=== PATIENT | female | born 1945 | race Caucasian/White ===

== ENCOUNTER 2018-10-17 09:02 | Day surgery (SDC) | payer MEDICARE, OTHER ==
[~2018-10-17 09:02] MED LIST: Lactated Ringers 1,000 ML IV SCH; Midazolam 1 MG/ML 2 ML SDV ONE; Propofol 200 MG/20 ML SDV ONE; Sodium Chloride 0.9% 10 ML Syringe FLUSH PRN
[2018-10-17] MEDS ORDERED: Propofol 200 MG/20 ML SDV IV ONE (09:03)
[2018-10-17] MEDS ORDERED: Midazolam 1 MG/ML 2 ML SDV IV ONE (09:03)
--- NOTE | 2018-10-17 09:44 | PCM.PN ---
- General Info Date of Service: 10/17/18 - Review of Systems Systems Review Comment:: 73 y/o female with history of colon polyps here for Colonoscopy. Her last colonoscopy was 5 years ago. She denies any recent rectal bleeding or major change in her bowel pattern. She is medically stable to proceed. Her recent H and P is reviewed and there are no significant changes noted. She agrees to proceed today accepting risks. - Patient Data Vitals - Most Recent: Last Vital Signs Temp 97.4 F 10/17/18 09:00 Pulse 79 10/17/18 09:00 Resp 18 10/17/18 09:00 BP 133/84 10/17/18 09:00 Pulse Ox 99 10/17/18 09:00 Med Orders - Current: Current Medications Lactated Ringer's (Ringers, Lactated) 1,000 mls @ 30 mls/hr IV ASDIRECTED MUKUL Sodium Chloride (Saline Flush) 10 ml FLUSH Q8HR PRN PRN Reason: keep vein open - Problem List Review Problem List Initiated/Reviewed/Updated: Yes - My Orders Last 24 Hours: My Active Orders 10/16/18 10:15 Resuscitation Status Routine 10/17/18 09:00 Patient to Empty Bladder [RC] ASDIRECTED Peripheral IV Care [RC] . DIRECTED Verify Patient Consent Obtain [RC] ASDIRECTED Vital Signs [RC] PER UNIT ROUTINE Lactated Ringers [Ringers, Lactated] 1,000 ml IV ASDIRECTED Sodium Chloride 0.9% [Saline Flush] 10 ml FLUSH Q8HR PRN Peripheral IV Insertion Adult [OM.PC] Routine 10/17/18 Breakfast Nothing Per Oral Diet [DIET] - Assessment Assessment:: History of colon polyps - Plan Plan:: Colonoscopy
--- NOTE | 2018-10-17 10:25 | PCM.OPNOTE ---
- General Post-Op/Procedure Note Date of Surgery/Procedure: 10/17/18 Operative Procedure(s): Colonoscopy Findings: Moderate sized external hemorrhoids Pre Op Diagnosis: History of Colon Polyps Post-Op Diagnosis: Hemorrhoids Anesthesia Technique: MAC Primary Surgeon: Isma Stock Pathology: none Output, Urine Amount: 0 EBL in mLs: 0 Complications: None Condition: Good
--- NOTE | 2018-10-17 11:43 | OR ---
DATE OF SURGERY: 10/17/2018 SURGEON: Isma Stock MD PREOPERATIVE DIAGNOSIS: History of colon polyps. POSTOPERATIVE DIAGNOSIS: Hemorrhoids. OPERATION PERFORMED: Colonoscopy. INDICATIONS FOR SURGERY: This 73-year-old female has a known history of colon polyps, having had a large adenoma removed from the left side of her colon in the past. She comes today for surveillance colonoscopy. FINDINGS: No polyps were seen on today's exam. The colon mucosa appeared normal. The patient did have a moderate degree of external hemorrhoids, but these did not appear to be complicated. PROCEDURE: The patient was taken to the operating room. She was given intravenous sedation and with her in the left lateral decubitus position, digital rectal exam was performed showing no rectal masses. The Olympus colonoscope is inserted into the rectum and retroflexed examination of the rectal canal is performed. The scope was then carefully advanced under direct visualization through the entire length of the colon until the cecum is reached. Cecal acquisition is confirmed by noting the normal internal cecal anatomy including the appendiceal orifice and ileocecal valve. The light was also noted to transilluminate the abdominal wall in the right lower quadrant. After examining the cecum, the scope was slowly withdrawn, sequentially re-examining the colonic segments until the entire colon and rectum had been fully examined. The scope was removed and the patient was taken from the operating room in satisfactory condition. ESTIMATED BLOOD LOSS: Zero. COMPLICATIONS: None. PROGNOSIS: Good. /[id number]/MODL
== END 2018-10-17 11:56 | disposition home or self-care (01) ==
LOC: KA.SDS 09:02
PROVIDERS: ATTEND Surgery
DX: Z12.11 Encounter for screening for malignant neoplasm of colon (principal); K64.4 Residual hemorrhoidal skin tags; D50.8 Other iron deficiency anemias; E78.5 Hyperlipidemia, unspecified; E55.9 Vitamin D deficiency, unspecified; G43.809 Other migraine, not intractable, without status migrainosus; G89.29 Other chronic pain; M54.5 Low back pain; Z88.5 Allergy status to narcotic agent; Z88.8 Allergy status to other drugs, medicaments and biological substances; Z90.49 Acquired absence of other specified parts of digestive tract; Z86.010 Personal history of colon polyps; Z79.899 Other long term (current) drug therapy
CPT/HCPCS: G0105; J2250; J2704; J7120; 00812

== ENCOUNTER 2024-01-02 16:15 | Emergency (ER) | payer MEDICARE, OTHER ==
[2024-01-02] MEDS: Lidocaine 1% 5 ML VIAL INJECT ONE (16:47)
[2024-01-02] MEDS: Lidocaine 1% 5 ML VIAL ONE (16:53)
== END 2024-01-02 18:00 | disposition home or self-care (01) ==
LOC: KA.ED 16:15
DX: S61.212A Laceration without foreign body of right middle finger without damage to nail, initial encounter (principal); S61.210A Laceration without foreign body of right index finger without damage to nail, initial encounter; E78.00 Pure hypercholesterolemia, unspecified; Z88.5 Allergy status to narcotic agent; Z79.899 Other long term (current) drug therapy; Z88.8 Allergy status to other drugs, medicaments and biological substances; W26.8XXA Contact with other sharp object(s), not elsewhere classified, initial encounter
CPT/HCPCS: 12001; 99282; 99283; J3490

== ENCOUNTER 2024-07-03 08:09 | Day surgery (SDC) | payer MEDICARE, OTHER ==
[~2024-07-03 08:09] MED LIST changes: -Lactated Ringers 1,000 ML IV SCH; -Midazolam 1 MG/ML 2 ML SDV ONE; -Propofol 200 MG/20 ML SDV ONE
[2024-07-03] MEDS: Lactated Ringers 1,000 ML IV SCH (08:30)
[2024-07-03] MEDS ORDERED: Midazolam 1 MG/ML 2 ML SDV ONE (08:56)
[2024-07-03] MEDS ORDERED: Propofol 200 MG/20 ML SDV ONE (08:56)
== END 2024-07-03 11:00 | disposition home or self-care (01) ==
LOC: KA.SDS 08:09
PROVIDERS: ATTEND Surgery
DX: Z12.11 Encounter for screening for malignant neoplasm of colon (principal); Z80.0 Family history of malignant neoplasm of digestive organs; Z86.0100 Personal history of colon polyps, unspecified; Z88.8 Allergy status to other drugs, medicaments and biological substances; Z88.5 Allergy status to narcotic agent; Z79.82 Long term (current) use of aspirin; Z79.899 Other long term (current) drug therapy
CPT/HCPCS: J2250; J2704; J7120